=== PATIENT | male | born 1995 | race Two or more races ===

== ENCOUNTER 2018-09-10 23:36 | Emergency (ER) | payer SELFPAY ==
[2018-09-10 23:54] VITALS: BP 101/68; PULSE 120; TEMP 98.5; BMI 26.0
--- NOTE | 2018-09-11 00:16 | PDOC ---
History of Present Illness - General Chief Complaint: Pain, Acute Stated Complaint: DISLOCATED RIGHT SHOULDER Time Seen by Provider: 09/10/18 23:45 History Source: Patient Exam Limitations: No Limitations - History of Present Illness Initial Comments: 09/11/18 00:16 This is a 23-year-old male who comes in complaining of accidentally dislocating his shoulder while sleeping. Patient said he woke up with a dislocated shoulder. Patient has history of dislocated shoulder 2 in the past the last one was spontaneous in about 3 months ago. Patient has not followed up with an orthopedist or explored repair of the shoulder. He is otherwise healthy denies any medical problems. Allergies: as per nursing notes Past Medical History: none Social history: Lives with family. No smoking. No alcohol. No illicit drugs. Surgical history: None General: No fevers or chills, no weakness, no weight loss HEENT: No change in vision. No sore throat,. No ear pain CardioVascular: no chest discomfort. No shortness of breath Respiratory:No cough, or wheezing. Gastrointestinal: no nausea, vomiting, diarrhea or constipation, No rectal bleeding Genitourinary: No dysuria, hematuria, or frequency Musculoskeletal: Right shoulder dislocation Neurologic: No headache, vertigo, dizziness or loss of consciousness Psychiatric: nor depression Skin: No rashes or easy bruising Endocrine: no increased thirst or abnormal weight change Allergic: no skin or latex allergy All other systems reviewed and normal Exam: General: Well-nourished well-developed individual, no acute distress HEENT: Throat: Normal, tonsils normal, no erythema or exudate Neck: Supple, no meningeal signs, no lymphadenopathy Eyes::Pupils equal reactive and round, extraocular motion intact Chest: Nontender to palpation Cardiac: S1-S2 normal, regular rate and rhythm, no murmurs rubs or gallops Respiratory: Lungs clear to auscultation bilateral Abdomen: Soft, nondistended, normal bowel sounds, there is no tenderness on palpation diffusely Extremities: Right shoulder there is an obvious deformity secondary to an anterior dislocation. Neurovascular distal is intact. Skin: No rashes Neuro: Alert and oriented x3, CN II - XII intact, nonfocal exam with normal strength, normal sensation, normal reflexes, normal gait, Psych: Normal mood and affect. X-ray: No acute fracture there is a anterior dislocation Moderate Sedation was administered during shoulder reduction. Medication used was propofol which was administered by me. Shoulder was initially unable to be reduced so patient was allowed to wake up and then given additional sedation as per his request and the reduction was successful on the second round. X-ray postreduction showed good reduction Patient put in sling and given orthopedic follow-up Past History - Past Medical History Allergies/Adverse Reactions: Allergies Allergy/AdvReac Type Severity Reaction Status Date / Time No Known Allergies Allergy Verified 09/10/18 23:44 Home Medications: Ambulatory Orders NK [No Known Home Medication] 09/10/18 Moderate Sedation - Pre-Procedure Assessment Joint Reduction Is this a Moderate (Conscious) sedation patient?: Yes Med/Surg Hx & PE performed: Yes Vital Signs: Vital Signs Temp Pulse Resp BP Pulse Ox 98.5 F 120 H 18 101/68 99 09/10/18 23:47 09/10/18 23:47 09/10/18 23:47 09/10/18 23:47 09/10/18 23:47 Does the patient have a history of Obstructive Sleep Apnea: No Prior complications with sedation/analgesia: No Mallampati Score: I ASA Physical Status: Class I Consent obtained: Written, From Patient Time out called (time): 00:20 Items checked for time out procedure: All work stopped, Patient identified using 2 identifiers, Procedure to be performed verified & agreed, Allergies noted, Consent read, ED physician/ACADEMIC ASSISTANT/PA/Resident identified, Patient position verified, All active procedure participants present from the beginning Sedation agent: Propofol - Post Procedure Assessment Tolerated procedure well: Yes Was a reversal agent used?: No Patient evaluation: Awake, alert and oriented, Vital signs reviewed, Cardiopulmonary exam normal, Pain controlled Printed Discharge Instructions given: Yes *DC/Admit/Observation/Transfer Diagnosis at time of Disposition: Shoulder dislocation, recurrent Qualifiers: Laterality: right Qualified Code(s): M24.411 - Recurrent dislocation, right shoulder - Discharge Dispostion Disposition: HOME Condition at time of disposition: Stable Decision to Admit order: No - Referrals Referrals: Vineet Wills MD [Staff Physician] - - Patient Instructions Additional Instructions: For the pain take Tylenol or Motrin. Wear the sling until you see an orthopedist. Follow-up with an orthopedist Dr. Wills called a office in the morning for an appointment. Return to the emergency department immediately with ANY new, persistent or worsening symptoms. Continue any medications as previously prescribed by your physician. You should follow up with your primary doctor as soon as possible regarding today's emergency department visit. . Please make sure your doctor reviews the results of your emergency evaluation. Thank you for coming to the Emergency Department today for your care. It was a pleasure to see you today. Please note that your evaluation is INCOMPLETE until you follow-up with your doctor. - Post Discharge Activity
[2018-09-11] MEDS ORDERED: PROPOFOL 20 ML ONE ×2 (00:20→00:45)
[2018-09-11] MEDS ORDERED: PROPOFOL 200 MG/20 ML VIAL IVPUSH ONE (00:58)
== END 2018-09-11 01:41 | disposition home or self-care (01) ==
LOC: FER 23:36
PROC: 0RSJXZZ Reposition Right Shoulder Joint, External Approach (ICD-10-PCS; principal; 2018-09-10)
DX: M24.411 Recurrent dislocation, right shoulder (principal); X58.XXXA Exposure to other specified factors, initial encounter; Y93.89 Activity, other specified; Y92.89 Other specified places as the place of occurrence of the external cause
CPT/HCPCS: 73030-TC-RT-FY; 99281-25